=== PATIENT | female | born 1950 | race Caucasian/White ===

== ENCOUNTER 2020-08-25 07:35 | Day surgery (SDC) | payer BC ==
[2020-08-18 12:20] LABS: BASOPHILS % (AUTO) 0.5 % (0-1); EOSINOPHILS # (AUTO) 0.1 X10'3 (0-0.9); EOSINOPHILS % (AUTO) 0.8 % (0-6); LYMPHOCYTES # (AUTO) 2.3 X10'3 (1.1-4.8); LYMPHOCYTES % (AUTO) 28.3 % (21-51); MEAN CORPUSCULAR HEMOGLOBIN 29.6 PG (27.0-31.0); MEAN CORPUSCULAR HGB CONC 33.6 g/dL (33.0-36.5); MEAN CORPUSCULAR VOLUME 88.3 FL (78-98); MEAN PLATELET VOLUME 8.8 FL (7.4-10.4); MONOCYTES # (AUTO) 0.6 X10'3 (0-0.9); MONOCYTES % (AUTO) 7.8 % (2-12); NEUTROPHILS # (AUTO) 5.1 X10'3 (1.8-7.7); NEUTROPHILS % (AUTO) 62.6 % (42-75); PRE OP HEMATOCRIT 41.4 % (35.0-45.0); PRE OP HEMOGLOBIN 13.9 g/dL (12.0-16.0); PRE OP PLATELET COUNT 302 X10'3 (140-440); RED BLOOD COUNT 4.69 X10'6 (4.20-5.60); RED CELL DISTRIBUTION WIDTH 13.6 % (11.5-14.5)
[2020-08-18 12:35] LABS: PRE OP PROTIME 10.6 SECONDS (9.0-12.0)
[2020-08-18 12:50] LABS: ALBUMIN 3.8 G/DL (3.4-5.0); ALBUMIN/GLOBULIN RATIO 0.9 (1.1-1.5); ALKALINE PHOSPHATASE 111 IU/L (46-116); BLOOD UREA NITROGEN 20 MG/DL (7-18); BUN/CREATININE RATIO 26.3 (6.6-38.0); CALCIUM 9.3 MG/DL (8.5-10.1); CHLORIDE 103 MMOL/L (99-107); CREATININE 0.76 MG/DL (0.40-0.90); PRE OP ALT 26 U/L (30-65); PRE OP ANION GAP 10 (8-16); PRE OP AST 15 U/L (10-37); PRE OP BILIRUB, TOTAL 0.3 MG/DL (0.0-1.0); PRE OP GLUCOSE 88 MG/DL (70-104); PRE OP SODIUM 141 MMOL/L (135-145); TOTAL CARBON DIOXIDE 27.8 MMOL/L (24-32); eGFR 75 ML/MIN
[2020-08-25] VITALS (7 sets, daily range): BP systolic 142–184; BP diastolic 78–105
[~2020-08-25] VITALS: Ht 154.9 cm; Wt 88.2 kg
[~2020-08-25 07:35] MED LIST: B12 PO; D3 PO; ELDE1CAP PO; LIDOcaine 1% W/epiNEPHrine 1:100,000 20ml vial ONE; MV-M1TAB69 PO; VIT E PO; cefTAZidime 1gm inj ONE; cocaine 4% topical solution 4ml bottle ONE; famotidine 20mg tablet PO ONE; methylPREDNISolone acetate 80mg/ml inj**IM only ONE; mupirocin 2% ointment 22GM ONE; oxymetazoline 15 ML nasal spray NS ONE; ringers solution, lacted 1,000 ML IV SCH
[2020-08-25] MEDS ORDERED: morphine 2 MG/ML inj. syringe IV PRN (09:00)
[2020-08-25] MEDS ORDERED: fentaNYL/PF 50MCG/1 ML 2ML syringe IV PRN ×2 (09:00)
[2020-08-25] MEDS ORDERED: morphine 4 MG/ML inj SYRINge IV PRN (09:00)
[2020-08-25] MEDS ORDERED: ondansetron/PF 4mg/2ml inj IV PRN (09:00)
[2020-08-25] MEDS ORDERED: hydrALAZINE 20mg/ml inj. IV PRN (09:00)
[2020-08-25] MEDS ORDERED: ringers solution, lacted 1,000 ML IV SCH (09:00)
[2020-08-25] MEDS ORDERED: labetalol 20mg/4ml (5mg/ml) syringe IV PRN (09:00)
[2020-08-25] MEDS: oxymetazoline 15 ML nasal spray NS PRN ×2 (09:14→09:19)
[2020-08-25] MEDS ORDERED: fentaNYL/PF 50MCG/1 ML 2ML syringe ONE (10:56)
[2020-08-25] MEDS ORDERED: midazolam 2 mg/2 ml injection ONE (10:56)
[2020-08-25] MEDS ORDERED: LIDOcaine 2% (20mg/ml) 5ml vial ONE (10:57)
[2020-08-25] MEDS ORDERED: ondansetron/PF 4mg/2ml inj ONE (10:57)
[2020-08-25] MEDS ORDERED: propofol inj 20 ML IV ONE (10:57)
[2020-08-25] MEDS ORDERED: sevoflurane 250ml liquid IH ONE (11:13)
[2020-08-25] MEDS ORDERED: dexamethasone sod phosphate 10mg/ml inj ONE (11:13)
[2020-08-25] MEDS ORDERED: oxymetazoline 15 ML nasal spray NS SCH (12:39)
[2020-08-25] MEDS ORDERED: salt irrigation nasal spray 45 ML SPRAY NS PRN (12:40)
[2020-08-25] MEDS ORDERED: mupirocin 2% ointment 22GM TP SCH (13:00)
--- NOTE | 2020-08-25 13:15 | NUR ---
AWAKE AND ORIENTED. VITALS STABLE. DRESSING DI. DARREN PAIN. HOME WITH A FRIEND AT THIS TIME.
== END 2020-08-25 13:15 | disposition home or self-care (01) ==
LOC: PAS 07:35
PROVIDERS: ATTEND Otolaryngology
DX: J34.2 Deviated nasal septum (principal); J34.3 Hypertrophy of nasal turbinates; Z20.828 Contact with and (suspected) exposure to other viral communicable diseases; E66.3 Overweight; Z68.36 Body mass index [BMI] 36.0-36.9, adult; Z90.710 Acquired absence of both cervix and uterus; Z98.890 Other specified postprocedural states; Z79.899 Other long term (current) drug therapy; Z79.01 Long term (current) use of anticoagulants
CPT/HCPCS: 30140; 30520; 36415; 80053; 82948; 85025; 85576; 85610; 85730; 87635; 93005; A6402; C9250; C9803; J0713; J1040; J2001; J2250; J2405; J2704; J3010; J7120; A4618; A7000; J1100